=== PATIENT | female | born 1985 | race African-American/Black ===

== ENCOUNTER 2020-12-09 18:53 | Emergency (ER) | payer OTHER ==
[~2020-12-09] VITALS: Ht 170.2 cm; Wt 68.6 kg
[2020-12-09 19:26] VITALS: BP 135/68
== END 2020-12-09 20:23 | disposition home or self-care (01) ==
LOC: ER 18:53
DX: S93.402A Sprain of unspecified ligament of left ankle, initial encounter (principal); X50.9XXA Other and unspecified overexertion or strenuous movements or postures, initial encounter; Y93.02 Activity, running; Y92.89 Other specified places as the place of occurrence of the external cause; Y99.8 Other external cause status
CPT/HCPCS: 73610; 99283